=== PATIENT | female | born 1975 | race Two or more races ===

== ENCOUNTER 2018-07-25 06:43 | Day surgery (SDC) | payer MEDICAID ==
[2018-07-25] MEDS ORDERED: fentaNYL 100 MCG/2 ML SDV ONE (07:13)
[2018-07-25] MEDS ORDERED: Midazolam 1 MG/ML 2 ML SDV ONE (07:13)
[2018-07-25] MEDS ORDERED: Propofol 200 MG/20 ML SDV ONE (07:13)
[2018-07-25] MEDS ORDERED: Lactated Ringers 1,000 ML IV SCH (07:30)
[2018-07-25 09:25] VITALS: BP 141/80
--- NOTE | 2018-07-25 10:22 | OR ---
DATE OF PROCEDURE: 07/25/2018 PREOPERATIVE DIAGNOSIS: Blood in stool, change in bowel habits. POSTOPERATIVE DIAGNOSES: 1. Unremarkable colonoscopy. 2. Blood in the stool, change in bowel habits; etiology unknown. PROCEDURE: Colonoscopy to the cecum. SURGEON: Teo Elizabeth MD ANESTHESIA: IV anesthesia with monitored anesthesia care. INDICATION: This 43-year-old white female is referred for a colonoscopy. She complains of blood in her stool and change in bowel habits, manifested by a feeling of incomplete evacuation and change in the size of her stool. I counseled her for a colonoscopy with possible biopsy and/or polypectomy, including risks and alternatives, and she gave her informed consent to proceed. DESCRIPTION OF PROCEDURE: The patient was placed in the left lateral decubitus position. IV anesthesia was administered by the Anesthesia Service. Time-out was held. A rectal exam was performed, which was unremarkable. The flexible video Olympus colonoscope was introduced through her anus, up her rectum and out her colon all the way to the cecum. Once the cecum was reached, the scope was slowly withdrawn examining the mucosa throughout. No mucosal abnormalities were noted. The scope was retroflexed in the rectum with the distal rectum appearing unremarkable. The scope was straightened and removed. She tolerated the procedure well. Teo Elizabeth MD /[id number] MTDD
== END 2018-07-25 09:45 | disposition home or self-care (01) ==
LOC: JP.SDS 06:43
PROVIDERS: ATTEND Surgery
DX: K92.1 Melena (principal); R19.4 Change in bowel habit; F43.10 Post-traumatic stress disorder, unspecified; Z88.8 Allergy status to other drugs, medicaments and biological substances; Z91.040 Latex allergy status
CPT/HCPCS: 45378; J2250; J2704; J3010; J7120

== ENCOUNTER 2018-09-17 09:56 | Day surgery (SDC) | payer MEDICAID ==
[2018-09-17] MEDS ORDERED: Ketorolac 60 MG/2 ML SDV IM ONE (10:11)
[2018-09-17] MEDS ORDERED: Ondansetron 4 MG Tab.DIS PO ONE (10:11)
--- NOTE | 2018-09-17 10:18 | EDM.PDOC ---
ED HPI GENERAL MEDICAL PROBLEM - General Chief Complaint: Abdominal Pain Stated Complaint: UPPER ABD PAIN/CHEST PAIN Time Seen by Provider: 09/17/18 10:08 Source of Information: Reports: Patient, RN Notes Reviewed History Limitations: Reports: No Limitations - History of Present Illness INITIAL COMMENTS - FREE TEXT/NARRATIVE: 43-year-old female presents to the emergency department today complaint of right sided flank pain, she states the pain was sudden onset early this morning gets very intense and then will wane but the pain never completely goes away. She has no history of kidney stones has had some ovarian cyst no history of abdominal Right Middle Abdomen Pain Score (Numeric/FACES): 9 - Related Data Allergies Allergy/AdvReac Type Severity Reaction Status Date / Time latex Allergy Hives Verified 07/25/18 07:19 bupropion [From Wellbutrin] AdvReac Vomiting Verified 07/25/18 07:19 citalopram AdvReac Confusion Verified 07/25/18 07:19 Home Meds: Home Meds Dextroamphetamine/Amphetamine [Adderall 20 mg Tablet] 20 mg PO BID 05/08/16 [ History] Cholecalciferol (Vitamin D3) [Vitamin D3] 1,000 units PO DAILY 07/24/18 [History ] Ketoconazole [Ketoconazole 2%] 1 applic TOP BID 07/24/18 [History] Multivitamin with Minerals [Multiple Vitamin] 1 tab PO DAILY 07/24/18 [History] Past Medical History HEENT History: Reports: Impaired Vision Gastrointestinal History: Reports: Chronic Constipation Genitourinary History: Reports: None PIN PUSHER History: Reports: Musculoskeletal History: Reports: Arthritis, Fracture Neurological History: Reports: Concussion, Migraines Psychiatric History: Reports: ADHD, Anxiety, Depression, PTSD Endocrine/Metabolic History: Reports: Obesity/BMI 30+ Dermatologic History: Reports: Other (See Below) Other Dermatologic History: dry skin - Infectious Disease History Infectious Disease History: Reports: Chicken Pox - Past Surgical History HEENT Surgical History: Reports: Oral Surgery Social & Family History - Tobacco Use Smoking Status *Q: Never Smoker - Caffeine Use Caffeine Use: Reports: Coffee, Tea - Recreational Drug Use Recreational Drug Use: Yes Drug Use in Last 12 Months: Yes Recreational Drug Type: Reports: Marijuana/Hashish Recreational Drug Use Frequency: Rarely ED ROS GENERAL - Review of Systems Review Of Systems: See Below Constitutional: Denies: Fever HEENT: Reports: No Symptoms Respiratory: Reports: No Symptoms Cardiovascular: Reports: No Symptoms GI/Abdominal: Reports: Abdominal Pain, Flatus, Nausea. Denies: Vomiting ED EXAM, GI/ABD - Physical Exam Exam: See Below Exam Limited By: No Limitations General Appearance: Alert, WD/WN, No Apparent Distress Respiratory/Chest: No Respiratory Distress, Lungs Clear, Normal Breath Sounds, No Accessory Muscle Use, Chest Non-Tender Cardiovascular: Regular Rate, Rhythm, No Murmur GI/Abdominal Exam: Soft, Tender (Along the right flank) Back Exam: Normal Inspection, Full Range of Motion. No: CVA Tenderness (R), CVA Tenderness (L) Course - Vital Signs Last Recorded V/S: Last Vital Signs Temp 96.9 F 09/17/18 10:13 Pulse 67 09/17/18 10:13 Resp 13 09/17/18 10:13 BP 165/93 H 09/17/18 10:13 Pulse Ox 99 09/17/18 10:13 - Orders/Labs/Meds Orders: Active Orders 24 hr Category Date Time Status Lactated Ringers [Ringers, Lactated] 1,000 ml Med 09/17/18 13:15 Active IV ASDIRECTED cefOXitin [Mefoxin] 2 gm Med 09/17/18 15:30 Active Sodium Chloride 0.9% [Normal Saline] 50 ml IV ONETIME Medication Orders Cefoxitin Sodium 2 gm/ Sodium (Chloride) 50 mls @ 100 mls/hr IV ONETIME ONE Stop: 09/17/18 15:59 Lactated Ringer's (Ringers, Lactated) 1,000 mls @ 150 mls/hr IV ASDIRECTED ZULLY Labs: Laboratory Tests 09/17/18 09/17/18 09/17/18 Range/Units 10:13 10:13 10:23 WBC 8.6 (4.5-11.0) K/uL RBC 4.62 (3.30-5.50) M/uL Hgb 12.9 (12.0-15.0) g/dL Hct 39.8 (36.0-48.0) % MCV 86 (80-98) fL MCH 28 (27-31) pg MCHC 32 (32-36) % Plt Count 165 (150-400) K/uL Neut % (Auto) 75 H (36-66) % Lymph % (Auto) 17 L (24-44) % Wolfe % (Auto) 8 H (2-6) % Eos % (Auto) 0 L (2-4) % Baso % (Auto) 0 (0-1) % Sodium (140-148) mmol/L Potassium (3.6-5.2) mmol/L Chloride (100-108) mmol/L Carbon Dioxide (21-32) mmol/L Anion Gap (5.0-14.0) mmol/L BUN (7-18) mg/dL Creatinine (0.6-1.0) mg/dL Est Cr Clr Drug Dosing mL/min Estimated GFR (MDRD) (>60) Glucose (74-106) mg/dL Lactic Acid (0.4-2.0) mmol/L Calcium (8.5-10.1) mg/dL Total Bilirubin (0.2-1.0) mg/dL AST (15-37) U/L ALT (12-78) U/L Alkaline Phosphatase (46-116) U/L Total Protein (6.4-8.2) g/dL Albumin (3.4-5.0) g/dL Globulin (2.3-3.5) g/dL Albumin/Globulin Ratio (1.2-2.2) Lipase (73-393) U/L Urine Color Yellow Urine Appearance Clear Urine pH 7.0 (4.5-8.0) Ur Specific [place] 1.015 (1.008-1.030) Urine Protein Negative (NEGATIVE) mg/dL Urine Glucose (UA) Negative (NEGATIVE) mg/dL Urine Ketones Negative (NEGATIVE) mg/dL Urine Occult Blood Negative (NEGATIVE) Urine Nitrite Negative (NEGATIVE) Urine Bilirubin Negative (NEGATIVE) Urine Urobilinogen Normal (NORMAL) mg/dL Ur Leukocyte Esterase Negative (NEGATIVE) Urine RBC Not seen (0-5) Urine WBC Not seen (0-5) Ur Epithelial Cells Rare Amorphous Sediment Not seen Urine Bacteria Not seen Urine Mucus Rare Urine HCG, Qual Negative 09/17/18 09/17/18 Range/Units 10:23 10:23 WBC (4.5-11.0) K/uL RBC (3.30-5.50) M/uL Hgb (12.0-15.0) g/dL Hct (36.0-48.0) % MCV (80-98) fL MCH (27-31) pg MCHC (32-36) % Plt Count (150-400) K/uL Neut % (Auto) (36-66) % Lymph % (Auto) (24-44) % Wolfe % (Auto) (2-6) % Eos % (Auto) (2-4) % Baso % (Auto) (0-1) % Sodium 138 L (140-148) mmol/L Potassium 3.9 (3.6-5.2) mmol/L Chloride 104 (100-108) mmol/L Carbon Dioxide 26 (21-32) mmol/L Anion Gap 11.9 (5.0-14.0) mmol/L BUN 15 (7-18) mg/dL Creatinine 0.8 (0.6-1.0) mg/dL Est Cr Clr Drug Dosing 76.65 mL/min Estimated GFR (MDRD) > 60 (>60) Glucose 104 (74-106) mg/dL Lactic Acid 1.4 (0.4-2.0) mmol/L Calcium 9.8 (8.5-10.1) mg/dL Total Bilirubin 0.2 (0.2-1.0) mg/dL AST 14 L (15-37) U/L ALT 20 (12-78) U/L Alkaline Phosphatase 45 L (46-116) U/L Total Protein 7.5 (6.4-8.2) g/dL Albumin 3.7 (3.4-5.0) g/dL Globulin 3.8 H (2.3-3.5) g/dL Albumin/Globulin Ratio 1.0 L (1.2-2.2) Lipase 162 (73-393) U/L Urine Color Urine Appearance Urine pH (4.5-8.0) Ur Specific [place] (1.008-1.030) Urine Protein (NEGATIVE) mg/dL Urine Glucose (UA) (NEGATIVE) mg/dL Urine Ketones (NEGATIVE) mg/dL Urine Occult Blood (NEGATIVE) Urine Nitrite (NEGATIVE) Urine Bilirubin (NEGATIVE) Urine Urobilinogen (NORMAL) mg/dL Ur Leukocyte Esterase (NEGATIVE) Urine RBC (0-5) Urine WBC (0-5) Ur Epithelial Cells Amorphous Sediment Urine Bacteria Urine Mucus Urine HCG, Qual Meds: Medications Generic Name Dose Route Start Last Admin Trade Name Freq PRN Reason Stop Dose Admin Cefoxitin Sodium 2 gm/ Sodium 50 mls @ 100 mls/hr 09/17/18 15:30 Chloride IV 09/17/18 15:59 ONETIME ONE Lactated Ringer's 1,000 mls @ 150 mls/hr 09/17/18 13:15 Ringers, Lactated IV ASDIRECTED ZULLY Discontinued Medications Generic Name Dose Route Start Last Admin Trade Name Yazmin PRN Reason Stop Dose Admin Hydromorphone HCl 1 mg 09/17/18 11:52 09/17/18 12:02 Dilaudid IM 09/17/18 11:53 1 mg ONETIME ONE Administration Ketorolac Tromethamine 60 mg 09/17/18 10:11 09/17/18 10:19 Toradol IM 09/17/18 10:12 60 mg ONETIME ONE Administration Ondansetron HCl 4 mg 09/17/18 10:11 09/17/18 10:19 Zofran Odt PO 09/17/18 10:12 4 mg ONETIME ONE Administration Departure - Departure Time of Disposition: 13:17 Disposition: Refer to Observation Condition: Fair Clinical Impression: Cholelithiasis Qualifiers: Cholelithiasis location: gallbladder Cholecystitis presence: without cholecystitis Biliary obstruction: without biliary obstruction Qualified Code(s) : K80.20 - Calculus of gallbladder without cholecystitis without obstruction - Discharge Information Referrals: PCP,None [Primary Care Provider] - Forms: ED Department Discharge - Assessment/Plan Plan: Assessment Acuity = acute Site and laterality = cholelithiasis with thickened gallbladder Etiology = unknown etiology Manifestations = abdominal pain Location of injury = Home Lab values = CBC, CMP, urinalysis unremarkable CT scan does show thickened gallbladder wall with sludge and multiple stones ultrasound confirms at 3.1 mm thickened wall with positive Vela sign Plan Discuss case Dr. Elizabeth at 1245 surgeon center receptionist he agreed to come and evaluate the patient in the emergency department for further evaluation This note was dictated using [employer] voice recognition software please call with any questions on syntax or grammar.
--- NOTE | 2018-09-17 11:16 | CT ---
Abdomen Pelvis wo Cont CLINICAL HISTORY: Right flank pain COMPARISON: 08/15/2018. TECHNIQUE: Axial tomographic images are obtained from the dome of the diaphragm to the pubic symphysis without IV contrast enhancement. No oral contrast was used. Auto dosage reduction and iterative reconstruction techniques employed. FINDINGS: The lung bases are clear. The liver shows no mass or biliary dilatation. The gallbladder is distended. There is internal density which may represent some biliary sludge or debris. There may be some mild wall thickening.. The spleen has a normal size and shape. The pancreas shows no mass or inflammatory change. The adrenal glands appear normal. The kidneys show no stones or hydronephrosis. Ureters have normal course and contour. The appendix is not definitively identified. No inflammatory changes are seen in the right lower quadrant. The uterus is mildly enlarged. The left ovary is mildly prominent measuring 3.4 x 3.5 cm. No inflammatory changes are seen. Impression: Slightly dilated gallbladder with some internal sludge or debris and possible mild wall thickening. No pericholecystic inflammatory changes are identified. Correlation with quadrant ultrasound is recommended.
[2018-09-17] MEDS ORDERED: HYDROmorphone 1 MG/ML Syringe IM ONE (11:52)
--- NOTE | 2018-09-17 12:09 | US ---
Abdomen Ltd CLINICAL HISTORY: Right upper quadrant pain, distended gallbladder COMPARISON: Recent CT. TECHNIQUE: Real-time images were obtained through the right upper quadrant. FINDINGS: The liver is free of mass or biliary dilatation. There is a homogeneous echotexture. The gallbladder is dilated measuring over 10 cm in length. There are multiple mobile gallstones. Gallbladder wall measures 3 mm. There is no pericholecystic fluid. The there was tenderness when scanning over the gallbladder. The common bile duct measures 5 mm. The pancreas is free of mass. The right kidney has a normal configuration. The IVC is normal. IMPRESSION: Cholelithiasis with gallbladder distention Gallbladder wall measures upper limits of normal. There is no surrounding fluid. Positive Vela's sign on scanning
[2018-09-17] MEDS: Lactated Ringers 1,000 ML IV SCH ×2 (13:39→23:12)
[2018-09-17] MEDS ORDERED: Lidocaine 1% with EPINEPHrine 1:100,000 50 ML MDV ONE (15:06)
[2018-09-17] MEDS ORDERED: Bupivacaine 0.5% 50 ML MDV ONE (15:06)
[2018-09-17] MEDS ORDERED: Propofol 200 MG/20 ML SDV ONE (15:07)
[2018-09-17] MEDS ORDERED: Glycopyrrolate 0.2 MG/ML 5 ML MDV ONE (15:07)
[2018-09-17] MEDS ORDERED: Dexamethasone 4 MG/ML SDV ONE (15:07)
[2018-09-17] MEDS ORDERED: Ondansetron 4 MG/2 ML SDV ONE (15:07)
[2018-09-17] MEDS ORDERED: Succinylcholine 200 MG/10 ML MDV ONE (15:07)
[2018-09-17] MEDS ORDERED: Neostigmine Methylsulfate 1 MG/ML 5 ML Syringe ONE (15:07)
[2018-09-17] MEDS ORDERED: Rocuronium 50 MG/5 ML Vial ONE (15:07)
[2018-09-17] MEDS ORDERED: fentaNYL 250 MCG/5 ML SDV ONE (15:07)
[2018-09-17] MEDS ORDERED: cefOXitin 2 GM in Sodium Chloride 0.9% 50 ML IV ONE (15:30)
[2018-09-17] MEDS ORDERED: Scopolamine 1.5 MG Transdermal Patch ONE (15:33)
[2018-09-17] MEDS ORDERED: fentaNYL 100 MCG/2 ML SDV ONE (16:20)
[2018-09-17] MEDS ORDERED: Docusate Sodium 100 MG Cap PO PRN ×2 (17:03→17:19)
[2018-09-17] MEDS ORDERED: Ondansetron 4 MG/2 ML SDV IVPUSH PRN ×2 (17:03→17:19)
[2018-09-17] MEDS ORDERED: fentaNYL 100 MCG/2 ML SDV IVPUSH PRN (17:03)
[2018-09-17] MEDS ORDERED: Lactated Ringers 1,000 ML IV SCH ×2 (17:15)
[2018-09-17] MEDS: fentaNYL 100 MCG/2 ML SDV IVPUSH PRN ×3 (18:29→23:09)
[2018-09-17] MEDS: Amphetamine/Dextroamphetamine Salts 10 MG Tab PO SCH (21:06)
[2018-09-18] MEDS: fentaNYL 100 MCG/2 ML SDV IVPUSH PRN (02:24)
[2018-09-18] MEDS: Lactated Ringers 1,000 ML IV SCH (05:22)
[2018-09-18] MEDS: Acetaminophen/HYDROcodone 325-5 MG Tab PO PRN ×2 (07:16→11:17)
--- NOTE | 2018-09-18 08:15 | OR ---
DATE OF PROCEDURE: 09/17/2018 PREOPERATIVE DIAGNOSIS: Acute cholecystitis with cholelithiasis. POSTOPERATIVE DIAGNOSIS: Acute cholecystitis with cholelithiasis. PROCEDURE: Laparoscopic cholecystectomy. SURGEON: Teo Elizabeth MD ANESTHESIA: General endotracheal. INDICATION: This 43-year-old white female awakened at 0500 this morning complaining of severe upper abdominal pain. This is in the right upper quadrant, radiates into her back, and is associated with nausea and vomiting. She said she has had ongoing right-sided back pain for several weeks. No fever or chills. She presented to the emergency room, where she was found to be tender in the right upper quadrant. Her temperature was 96.9. Her white count was 8,600. Liver functions were unremarkable. She had a CAT scan of her abdomen and pelvis, which was suggestive of gallbladder disease. It appeared she had sludge in her gallbladder. However, an ultrasound was obtained which showed normal-sized duct , stones in the gallbladder, markedly distended gallbladder, and the contract administration manager noted tenderness in the right upper quadrant with doing the scan of the right upper quadrant. She was taken to the operating room, after receiving Mefoxin 2 g IV, for a laparoscopic cholecystectomy. Prior abdominal surgery consists of a section with a bilateral tubal ligation at the same time. I counseled her for surgery, including risks and alternatives, and she gave her informed consent to proceed. DESCRIPTION OF PROCEDURE: After adequate general endotracheal anesthesia was obtained, the patient's abdomen was prepped and draped in the usual sterile fashion. Time -out was held. A infraumbilical semicircular incision was made. Under direct vision, a 12-mm port was introduced into the abdomen through this incision using the Optiview technique. The camera was introduced into the abdomen and the abdomen was insufflated to a pressure of 15 mmHg with carbon dioxide. No evidence of intraabdominal injury was seen. Under direct vision, a 12-mm port was placed in the epigastrium and a 5-mm port was placed in the right lower quadrant. The gallbladder was noted to be markedly distended. It had erythematous hue to it consistent with acute cholecystitis. The cystic duct and arteries were dissected free. They were each clipped separately up on the gallbladder and three times proximally and divided between clips. These were done well away from the common duct. The gallbladder was then dissected free from the gallbladder bed using Bovie electrocautery. The gallbladder was placed in a sample retrieval bag and elevated up through the anterior abdominal wall via the epigastric port site. We did leak a little bile from the gallbladder. To remove the gallbladder with multiple stones we had to enlarge the incision a little. The gallbladder was then removed. It was noted to contain multiple, what appeared to be cholesterol stones. It was cultured off the field. The epigastric port was reintroduced back into the abdomen. The gallbladder bed was irrigated and suctioned dry, all looked well. The fascial closure device was used to place a 0 Vicryl stitch in the epigastric fascial defect. The infraumbilical port was removed with an interrupted stitch of 0 Vicryl used to close this fascial defect. We did try to evacuate as much CO2 from the abdomen as we could. We removed the 5- mm port site in the right lower quadrant. Lidocaine 1% with epinephrine in a 50: 50 mix with 0.5% Marcaine was infiltrated about all incisions. A 4-0 Vicryl using a subcuticular stitch was placed to approximate the skin in the incisions. Dermabond was applied. The anesthesia was reversed. She was extubated and brought to recovery room in good condition. Teo Elizabeth MD /[id number] MTDUli
[2018-09-18] MEDS: Amphetamine/Dextroamphetamine Salts 10 MG Tab PO SCH (08:55)
[2018-09-18] MEDS ORDERED: Cholecalciferol (Vitamin D3) 1,000 Unit Tab PO SCH ×2 (09:00)
[2018-09-18] MEDS ORDERED: Non-Formulary Medication 1 Each (Multivitamin With Minerals [Multiple Vitamin] 1 TAB) PO SCH (09:00)
[2018-09-18] MEDS ORDERED: Multivitamins with Iron/Calcium/Folic Acid/Minerals Tab PO SCH (09:00)
[2018-09-18 11:12] VITALS: BP 173/90
--- NOTE | 2018-10-03 13:33 | PCM.DCSUM1 ---
Discharge Summary - Hospital Course Free Text/Narrative:: This 43 year old white female awakened earlier in the morning on with severe right upper abdominal pain which radiated into her back and was associated with nausea and vomiting. Rigo presented to the ER where a CT of her abdomen was suggestive of gall bladder inflammation with sludge. An ultrasound showed cholelithiasis with a normal sided duct. LFT's were normal. She was taken to the OR where she was found to have clinical acute cholecystitis with cholelithiasis. She underwent a laparoscopic cholecystectomy. Post operatively she did well and is discharged home on the first post operative day in good condition. HPI Initial Comments: Acute cholecystitis with cholelithiasis. Brief History: See above narrative Diagnosis: Stroke: No - Discharge Data Discharge Date: 09/18/18 Discharge Disposition: Home, Self-Care 01 Condition: Good - Discharge Diagnosis/Problem(s) (1) Cholelithiasis SNOMED Code(s): 890118703 ICD Code: K80.20 - CALCULUS OF GALLBLADDER W/O CHOLECYSTITIS W/O OBSTRUCTION Status: Acute Qualifiers: Cholelithiasis location: gallbladder Cholecystitis presence: without cholecystitis Biliary obstruction: without biliary obstruction Qualified Code(s): K80.20 - Calculus of gallbladder without cholecystitis without obstruction (2) Status post laparoscopic cholecystectomy SNOMED Code(s): 696940032, [id number], 674769225 ICD Code: Z90.49 - ACQUIRED ABSENCE OF OTHER SPECIFIED PARTS OF DIGESTIVE TRACT Status: Acute - Patient Summary/Data Operative Procedure(s) Performed: Laparoscopic cholecystectomy. Consults: Consultations 09/17/18 17:03 Respiratory Care Assess and Treatment [CONS] Routine Comment: Physician Instructions: Post-Op Pneumonia Prevention - Patient Instructions Diet: Regular Diet as Tolerated Activity: As Tolerated Activity, Other: avoid activity that causes discomfort Driving: Do Not Drive Driving, Other: don't drive while on pain medication Showering/Bathing: May Shower Wound/Incision Care: Keep Operative Site/Wound Site Clean and Dry Notify Provider of: Fever, Increased Pain, Swelling and Redness, Drainage, Nausea and/or Vomiting Other/Special Instructions: appointment with Dr. Elizabeth at [facility] September 28, 2018 at 1:45 pm - Discharge Plan *PRESCRIPTION DRUG MONITORING PROGRAM REVIEWED*: No *COPY OF PRESCRIPTION DRUG MONITORING REPORT IN PATIENT HUNG: No Home Medications: Home Meds Dextroamphetamine/Amphetamine [Adderall 20 mg Tablet] 20 mg PO BID 05/08/16 [ History] Cholecalciferol (Vitamin D3) [Vitamin D3] 1,000 units PO DAILY 07/24/18 [History ] Ketoconazole [Ketoconazole 2%] 1 applic TOP BID 07/24/18 [History] Multivitamin with Minerals [Multiple Vitamin] 1 tab PO DAILY 07/24/18 [History] Patient Handouts: Laparoscopic Cholecystectomy, Care After, [id number], Gallbladder Eating Plan, Preventing Constipation After Surgery Referrals: Teo Elizabeth MD [Physician] - 09/28/18 1:45 pm PCP,None [Primary Care Provider] - - Discharge Summary/Plan Comment DC Time >30 min.: Yes - General Info Functional Status: Reports: Pain Controlled, Tolerating Diet, Ambulating, Urinating - Review of Systems General: Reports: No Symptoms HEENT: Reports: No Symptoms Pulmonary: Reports: No Symptoms Cardiovascular: Reports: No Symptoms Gastrointestinal: Reports: No Symptoms Genitourinary: Reports: No Symptoms Musculoskeletal: Reports: No Symptoms Skin: Reports: No Symptoms Neurological: Reports: No Symptoms Psychiatric: Reports: No Symptoms - Patient Data Vitals - Most Recent: Last Vital Signs Temp 97.9 F 09/18/18 11:00 Pulse 65 09/18/18 11:00 Resp 18 09/18/18 11:00 BP 173/90 H 09/18/18 11:00 Pulse Ox 98 09/18/18 11:00 Weight - Most Recent: 200 lb Med Orders - Current: Current Medications Discontinued Medications Hydrocodone Bitart/Acetaminophen ([place] 325-5 Mg) 2 tab PO Q4H PRN PRN Reason: Abdominal Pain Last Admin: 09/18/18 11:17 Dose: 2 tab Amphetamine/Dextroamphetamine (Adderall) 20 mg PO BID ZULLY Last Admin: 09/18/18 08:55 Dose: 20 mg Bupivacaine HCl (Marcaine 0.5%) Confirm Administered Dose 50 ml .ROUTE .STK-MED ONE Stop: 09/17/18 15:07 Last Admin: 09/17/18 16:07 Dose: 20 ml Cholecalciferol (Vitamin D3) 1,000 units PO DAILY ZULLY Cholecalciferol (Vitamin D3) 1,000 units PO DAILY [facility] [place] Last Admin: 09/18/18 08:55 Dose: 1,000 units Dexamethasone (Dexamethasone) Confirm Administered Dose 4 mg .ROUTE .STK-MED ONE Stop: 09/17/18 15:08 Docusate Sodium (Colace) 100 mg PO BID PRN PRN Reason: Constipation Docusate Sodium (Colace) 100 mg PO BID PRN PRN Reason: Constipation Fentanyl (Sublimaze) Confirm Administered Dose 250 mcg .ROUTE .STK-MED ONE Stop: 09/17/18 15:08 Fentanyl (Sublimaze) Confirm Administered Dose 100 mcg .ROUTE .STK-MED ONE Stop: 09/17/18 16:21 Fentanyl (Sublimaze) 50 mcg IVPUSH Q1H PRN PRN Reason: Pain (severe 7-10) Fentanyl (Sublimaze) 50 mcg IVPUSH Q1H PRN PRN Reason: Pain (severe 7-10) Last Admin: 09/18/18 02:24 Dose: 50 mcg Glycopyrrolate (Robinul) Confirm Administered Dose 1 mg .ROUTE .STK-MED ONE Stop: 09/17/18 15:08 Hydromorphone HCl (Dilaudid) 1 mg IM ONETIME ONE Stop: 09/17/18 11:53 Last Admin: 09/17/18 12:02 Dose: 1 mg Cefoxitin Sodium 2 gm/ Sodium (Chloride) 50 mls @ 100 mls/hr IV ONETIME ONE Stop: 09/17/18 15:59 Last Admin: 09/17/18 15:25 Dose: 100 mls/hr Lactated Ringer's (Ringers, Lactated) 1,000 mls @ 150 mls/hr IV ASDIRECTED [facility] [place] Last Admin: 09/18/18 05:22 Dose: 150 mls/hr Lactated Ringer's (Ringers, Lactated) 1,000 mls @ 125 mls/hr IV ASDIRECTED [facility] [place] Lactated Ringer's (Ringers, Lactated) 1,000 mls @ 125 mls/hr IV ASDIRECTED [facility] Ketorolac Tromethamine (Toradol) 60 mg IM ONETIME ONE Stop: 09/17/18 10:12 Last Admin: 09/17/18 10:19 Dose: 60 mg Lidocaine/Epinephrine (Xylocaine 1% With Epinephrine 1:100,000) Confirm Administered Dose 50 ml .ROUTE .STK-MED ONE Stop: 09/17/18 15:07 Last Admin: 09/17/18 16:07 Dose: 20 ml Multivitamins/Minerals (Thera M Plus) 1 tab PO DAILY [facility] Last Admin: 09/18/18 08:55 Dose: 1 tab Neostigmine Methylsulfate (Neostigmine) Confirm Administered Dose 5 mg .ROUTE .STK-MED ONE Stop: 09/17/18 15:08 Non-Formulary Medication (Dextroamphetamine/Amphetamine [Adderall 20 Mg Tablet] ) 20 mg PO BID [facility] [place] Non-Formulary Medication (Multivitamin With Minerals [Multiple Vitamin]) 1 tab PO DAILY [facility] Ondansetron HCl (Zofran Odt) 4 mg PO ONETIME ONE Stop: 09/17/18 10:12 Last Admin: 09/17/18 10:19 Dose: 4 mg Ondansetron HCl (Zofran) Confirm Administered Dose 4 mg .ROUTE .STK-MED ONE Stop: 09/17/18 15:08 Ondansetron HCl (Zofran) 4 mg IVPUSH Q6H PRN PRN Reason: Nausea/Vomiting Ondansetron HCl (Zofran) 4 mg IVPUSH Q6H PRN PRN Reason: Nausea/Vomiting Propofol (Diprivan 20 Ml) Confirm Administered Dose 200 mg .ROUTE .STK-MED ONE Stop: 09/17/18 15:08 Rocuronium [place] (Zemuron) Confirm Administered Dose 50 mg .ROUTE .STK-MED ONE Stop: 09/17/18 15:08 Scopolamine (Transderm-Scop) Confirm Administered Dose 1.5 mg .ROUTE .STK-MED ONE Stop: 09/17/18 15:34 Succinylcholine Chloride (Quelicin) Confirm Administered Dose 200 mg .ROUTE .STK -MED ONE Stop: 09/17/18 15:08 - Exam General: Reports: Alert, Oriented, Cooperative, No Acute Distress Lungs: Reports: Clear to Auscultation, Normal Respiratory Effort Cardiovascular: Reports: Regular Rate, Regular Rhythm GI/Abdominal Exam: Normal Bowel Sounds, Soft Extremities: Normal Inspection Skin: Reports: Warm, Dry, Intact Neurological: Reports: No New Focal Deficit Psy/Mental Status: Reports: Alert, Normal Affect, Normal Mood
== END 2018-09-18 11:40 | disposition home or self-care (01) ==
LOC: JP.ED 09:56 → JP.SDS 14:53 → JP.MS 17:03 → JP.SDS 09-18 11:40
PROVIDERS: ATTEND Surgery
DX: K80.12 Calculus of gallbladder with acute and chronic cholecystitis without obstruction (principal); F90.9 Attention-deficit hyperactivity disorder, unspecified type; Z88.8 Allergy status to other drugs, medicaments and biological substances; Z91.040 Latex allergy status; Z79.899 Other long term (current) drug therapy
CPT/HCPCS: 36415; 47562; 74176; 76705; 80053; 80076; 81001; 81025; 83605; 83690; 85025; 85027; 87070; 87075; 87205; 88304; 94762; 96360; 96372; 99285; A9270; J0330; J0694; J1100; J1170; J1885; J2405; J2704; J2710; J3010; J3490; J7050; J7120